=== PATIENT | male | born 1995 | race Caucasian/White ===

== ENCOUNTER 2018-12-05 19:07 | Emergency (ER) | payer BC, OTHER ==
[2018-12-05] MEDS ORDERED: TDAP ADULT 0.5 ML INJ (BOOSTRIX) IM ONE (19:36)
--- NOTE | 2018-12-05 19:37 | EDPHY ---
General Time Seen by Provider: 12/05/18 19:27 Narrative: CLINICAL IMPRESSION: Right 2nd toe laceration ASSESSMENT/PLAN: 23-year-old otherwise healthy male presents to the emergency department with an acute right 2nd dorsal toe laceration after accidentally dropping a kitchen knife on a bare foot this evening. Tetanus was updated in the ED. No clinical evidence to suggest extensor tendon injury. X-rays negative for underlying fracture and foreign body. Wound was anesthetized, cleaned, and repaired as per chart notes below. Wound care discussed, signs and symptoms of infection reviewed, postop shoe provided for comfort. PCP referral given. Warning signs return to ED sooner outlined and discharge. DIFFERENTIAL DIAGNOSIS: includes but not limited to laceration of tendon or vascular structure, underlying fracture, laceration with retained FB ED PROCEDURES: Laceration Repair Verbal consent obtained by patient. Risks discussed, including but not limited to infection, pain, retained foreign body, need for additional repair, poor cosmetic result, tendon damage, nerve damage, poor wound healing, vascular damage. Alternatives to repair discussed. Reed protocol used to establish correct patient, procedure, equipment, biomedical equipment support specialist, and site. Anesthesia obtained by DIGITAL NERVE BLOCK AT RIGHT 2ND MTP. Anesthetized with 0.5% bupivacaine without epi. Laceration location right 2nd toe, dorsal surface, length 2 cm, depth 2 mm, Repair type simple. Patient was prepped and draped in usual sterile fashion. Hemostasis achieved with direct pressure. Wound explored through full range of motion and entire depth of wound probed and visualized with gloved finger. No suspicion for nerve damage, tendon damage, underlying fracture, vascular damage, foreign body, or contamination. Area was cleansed with Shur-Clens and irrigated with sterile saline as per protocol. No foreign body or material removed. Repair method 5 0 Prolene simple interrupted sutures. Seven sutures placed. Well aligned, closely approximated. wound was dressed with bacitracin and Band- Aid. Patient tolerated well with no immediate complications. Wound care: Clean and dry x 24 hours, gently clean with soap and water, cover with topical antibiotic ointment/bandage. Suture/Staple removal: 10 Days Procedure: Splint placement. A postop shoe splint was applied to the right foot. After application of the splint I returned and re-examined the patient. The splint was adequately immobilizing the joint and distal to the splint the patient's circulation and sensation was intact. 8:22 p.m.: X-rays negative for fracture and foreign body. CHIEF COMPLAINT: Laceration HPI: 23-year-old male presents to the emergency department with an acute laceration to the right 2nd toe. Patient reports he accidentally dropped a large kitchen knife on the toe this evening when it slipped out of his hand. He was not wearing socks or footwear. He reports no obvious deformity to the toe or difficulty moving the toe. He believes his tetanus was over 10 years ago. PAST MEDICAL HISTORY: . He is otherwise healthy none reported Pertinent Past Surgical History: None reported Social History: Here with roommates and significant other REVIEW OF SYSTEMS: All other systems negative Constitutional: No fever, no chills Musculoskeletal: No deformity, no joint pain Skin: Laceration to the dorsum of the right 2nd toe Neurological: No sensory loss or weakness, 2 point discrimination intact. PHYSICAL EXAM: General Appearance: Alert, oriented, appropriate for age, cooperative, NAD, well hydrated, non-toxic appearing, VSS, no hypoxia. Neurological: Alert and oriented x 3 Skin: 2 cm laceration, v-shaped to the dorsum of the right 2nd toe distal to the D IP joint. Musculoskeletal: Full range of motion of the toe. No evidence of extensor tendon injury. Two-point discrimination intact. No deep structure injury identified. MEDICAL DECISION MAKING: Patient was seen independently. Secondary supervising physician at time of evaluation was Dr. Matta . Diagnosis: Right 2nd toe laceration . New, requires workup Summary: See assessment and plan for summary of ED visit Independent visualization of images, tracing, or specimens Yes / No. Patient Progress stable for discharge . - Diagnostics Imaging Results: Imaging Impressions Foot X-Ray 12/05/18 19:36 Impression: Negative for fracture. - History Smoking Status: Current every day smoker - Objective Vital Signs: Initial Vital Signs Temperature (C) 36.8 C 12/05/18 19:10 Heart Rate 130 H 12/05/18 19:10 Respiratory Rate 16 12/05/18 19:10 Blood Pressure 136/99 H 12/05/18 19:10 O2 Sat (%) 95 12/05/18 19:10 O2 Delivery Mode Room Air Allergies/Adverse Reactions: No Known Allergies Allergy (Unverified 12/05/18 19:09) Home Medications: Medication Instructions Recorded Adderall 10 MG (*) 12/05/18 Medications Given: Discontinued Medications Diphtheria/Tetanus/Acell Pertussis (Boostrix) 0.5 ml IM .ONCE ONE Stop: 12/05/18 19:37 Last Admin: 12/05/18 19:46 Dose: 0.5 ml Departure - Departure Disposition: Home, Routine, Self-Care Clinical Impression: Toe laceration Qualifiers: Encounter type: initial encounter Toe: lesser toe Damage to nail status: without damage Foreign body presence: without foreign body Laterality: right Qualified Code(s): S91.114A - Laceration without foreign body of right lesser toe(s) without damage to nail, initial encounter Condition: Good Instructions: Laceration (ED) Additional Instructions: DISCHARGE INSTRUCTIONS FROM YOUR DOCTOR Thank you for visiting our emergency department today. You were treated by a physician showroom sales assistant today and your case was reviewed with our ED Attending physician. Please keep in mind that discharge from the emergency department does not mean that there is nothing wrong - it simply means that we have not identified an emergency condition that requires further evaluation or treatment in the hospital. You should always plan to follow up with primary care for re- evaluation of your condition in the next 2-3 days. If you have been referred to a specialist, please call as soon as possible (today or tomorrow) to schedule your follow up appointment at the appropriate time. PLEASE HAVE SUTURES/ELEANOR REMOVED IN 10 DAYS. YOU CAN RETURN TO THE EMERGENCY DEPARTMENT OR YOUR PRIMARY CARE FOR SUTURE/STAPLE REMOVAL. AVOID SUBMERGING SUTURES/ELEANOR UNDERWATER FOR PROLONGED PERIOD OF TIME UNTIL REMOVED. KEEP WOUND CLEAN AND DRY, COVER WITH ANTIBIOTIC OINTMENT AND BAND-AID. RETURN TO EMERGENCY DEPARTMENT FOR REDNESS, SWELLING, DISCHARGE, WARMTH TO THE SKIN, OR ANY OTHER CONCERNS FOR INFECTION. People present with illnesses and injuries in different ways, and it is always possible that we have missed something. You may always return for re-evaluation if symptoms worsen or if they are not improving or if you develop new/different symptoms. Again, thank you for choosing our emergency department. We hope that you feel better. Referrals: NONE *PRIMARY CARE P,. [Primary Care Provider] - As per Instructions Dayanna Escoto MD [Medical Doctor] - 5-7 days, if not improved
[2018-12-05] MEDS ORDERED: IBUPROFEN 600 MG TAB PO ONE (21:00)
[2018-12-05 21:16] VITALS: BP 135/99
== END 2018-12-05 21:19 | disposition home or self-care (01) ==
PROC: 0HQMXZZ Repair Right Foot Skin, External Approach (ICD-10-PCS; principal; 2018-12-05)
DX: S91.114A Laceration without foreign body of right lesser toe(s) without damage to nail, initial encounter (principal); W26.0XXA Contact with knife, initial encounter; Y92.000 Kitchen of unspecified non-institutional (private) residence as the place of occurrence of the external cause; Z23 Encounter for immunization
CPT/HCPCS: L4386